=== PATIENT | male | born 1995 | race Caucasian/White ===

== ENCOUNTER → 2021-05-16 12:50 | Outpatient (CLI) | payer BC, SELFPAY ==
--- NOTE | ~2021-05-16 | XR_ITS ---
EXAMINATION: XR foot LT min 3V DATE: 05/16/2021 13:23 INDICATION: Left foot pain. TECHNIQUE: 4 views of left foot were obtained. COMPARISON: None. FINDINGS: Bone alignment is normal. There is a chip fracture of anterior process of calcaneus. There is mild osteoarthritis of first metatarsophalangeal joint and talonavicular joint. IMPRESSION: 1. Chip fracture of anterior process of calcaneus. 2. Mild polyarticular osteoarthritis. Reviewed, dictated and finalized at location A. AL SURGEON
== END ==
PROVIDERS: PCP Pediatrics; Visit Provider Pediatrics
DX: M19.072 Primary osteoarthritis, left ankle and foot (principal); S92.025A Nondisplaced fracture of anterior process of left calcaneus, initial encounter for closed fracture; X58.XXXA Exposure to other specified factors, initial encounter
CPT/HCPCS: 73630